=== PATIENT | male | born 1995 | race Hispanic/Latino ===

== ENCOUNTER 2018-06-30 01:36 | Emergency (ER) | payer OTHER ==
[2018-06-30 02:08] VITALS: RESP 18; TEMP 98
[2018-06-30 03:12] VITALS: BP 132/77; PULSE 98; O2SAT 97
== END 2018-06-30 03:00 | disposition home or self-care (01) ==
LOC: H.ER 01:36
DX: F10.129 Alcohol abuse with intoxication, unspecified (principal); Z00.00 Encounter for general adult medical examination without abnormal findings